=== PATIENT | female | born 1995 | race Caucasian/White ===

== ENCOUNTER → 2023-11-30 | Outpatient (CLI) | payer OTHER ==
--- NOTE | 2023-11-30 16:41 | XR ---
EXAMINATION TYPE: XR thoracic spine complete DATE OF EXAM: 11/30/2023 COMPARISON: None HISTORY: Back pain, acute injury TECHNIQUE: Thoracic spine is examined in 3 projections FINDINGS: There are 12 thoracic type vertebral bodies. Pedicles are intact. T12 ribs are rudimentary. Vertebral body heights are preserved. Disc heights are preserved. Spinous processes as visualized ap pear normal. Follow-up can be performed as clinically indicated. IMPRESSION: 1. No acute osseous abnormality thoracic spine. [facility], Workstation: [facility], 11/30/2023 4:39 PM
== END | disposition home or self-care (01) ==
LOC: RADXRMAIN 16:06
PROVIDERS: ATTEND Emergency Medicine
DX: S23.3XXA Sprain of ligaments of thoracic spine, initial encounter (principal)
CPT/HCPCS: 72072